=== PATIENT | male | born 1985 | race Caucasian/White ===

== ENCOUNTER 2017-05-28 23:20 | Emergency (ER) | payer OTHER ==
[~2017-05-28] VITALS: Ht 172.7 cm; Wt 75.9 kg
[2017-05-29 00:08] VITALS: BP 188/107
== END 2017-05-29 00:09 | disposition home or self-care (01) ==
LOC: ED 23:20
DX: L03.115 Cellulitis of right lower limb (principal); F12.90 Cannabis use, unspecified, uncomplicated; Z79.1 Long term (current) use of non-steroidal anti-inflammatories (NSAID)

== ENCOUNTER 2017-09-17 18:44 | Emergency (ER) | payer OTHER ==
[2017-09-17 21:08] LABS: AMPHETAMINE QUAL UR POSITIVE (NEG <=1000)
[2017-09-17 21:29] VITALS: BP 153/119
== END 2017-09-17 21:29 | disposition home or self-care (01) ==
LOC: ED 18:44
PROVIDERS: Emergency Medicine
DX: S05.8X1A Other injuries of right eye and orbit, initial encounter (principal); H11.31 Conjunctival hemorrhage, right eye; W22.8XXA Striking against or struck by other objects, initial encounter; Y99.8 Other external cause status; Y93.89 Activity, other specified; Y92.89 Other specified places as the place of occurrence of the external cause

== ENCOUNTER 2018-01-01 19:20 | Emergency (ER) | payer OTHER ==
[~2018-01-01] VITALS: Ht 172.7 cm; Wt 75.9 kg
[2018-01-01 19:34] VITALS: Ht 172.7 cm; Wt 75.9 kg
[2018-01-01 22:48] VITALS: BP 156/111
== END 2018-01-01 22:52 | disposition home or self-care (01) ==
LOC: ED 19:20
DX: J06.9 Acute upper respiratory infection, unspecified (principal); F15.10 Other stimulant abuse, uncomplicated
CPT/HCPCS: 87804; J2060; J7030